=== PATIENT | male | born 1950 | race American Indian/Alaskan Native ===

== ENCOUNTER 2021-05-23 11:14 | Emergency (ER) | payer OTHER ==
[~2021-05-23] VITALS: Ht 185.4 cm; Wt 145.1 kg
[2021-05-23] MEDS ORDERED: HYDROCODONE-HO1 EAC1 (11:29)
[2021-05-23] MEDS ORDERED: GRALISE600 MG (11:29)
[2021-05-23] MEDS ORDERED: DIABETES (11:30)
== END 2021-05-23 13:31 | disposition home or self-care (01) ==
LOC: ER 11:14
DX: S33.5XXA Sprain of ligaments of lumbar spine, initial encounter (principal); R07.89 Other chest pain; M54.6 Pain in thoracic spine; V49.88XA Car occupant (driver) (passenger) injured in other specified transport accidents, initial encounter; Y93.89 Activity, other specified; Y92.89 Other specified places as the place of occurrence of the external cause; Y99.8 Other external cause status; Z03.818 Encounter for observation for suspected exposure to other biological agents ruled out

== ENCOUNTER 2025-03-04 17:36 | Emergency (ER) | payer OTHER ==
[~2025-03-04] VITALS: Ht 185.4 cm; Wt 140.6 kg
[~2025-03-04 17:36] MED LIST: ADULT LOW DOSE81 M1 PO; DIABETES; GABAPENTIN800 M1 PO; GRALISE600 MG; HYDROCODONE-HO1 EAC1; NORVASC5 MG PO; TAMS0.4C PO; VALSARTAN160 MG PO
[2025-03-04] MEDS ORDERED: FLONASE16 GM NS (19:25)
[2025-03-04] MEDS ORDERED: DULOXETINE HCL60 MG PO (19:25)
[2025-03-04] MEDS ORDERED: TRELEGY ELLIPT1 EAC1 IH (19:25)
[2025-03-04] MEDS ORDERED: ROFLUMILAST TP (19:26)
[2025-03-04] MEDS ORDERED: OZEMPIC2 MG/0.75 (19:27)
[2025-03-04] MEDS ORDERED: FUROSEMIDE40 MG PO (19:27)
[2025-03-04] MEDS ORDERED: ASPIRIN81 MG (19:28)
[2025-03-04] MEDS ORDERED: FEBUXOSTAT80 MG PO (19:28)
[2025-03-04] MEDS ORDERED: NORFLEX100MG PO (21:06)
[2025-03-04] MEDS ORDERED: DICLOFENAC SODI75 MG PO (21:06)
[2025-03-04] MEDS ORDERED: ORPHENADRINE CITRATE 30 MG/ML AMPUL ONE (21:20)
[2025-03-04] MEDS ORDERED: KETOROLAC TROMETHAMINE 60 MG VIAL IM ONE ×2 (21:21→21:30)
[2025-03-04] MEDS ORDERED: ORPHENADRINE CITRATE 30 MG/ML AMPUL IM ONE (21:30)
== END 2025-03-04 22:23 | disposition home or self-care (01) ==
LOC: ER 17:36
DX: M25.511 Pain in right shoulder (principal); M62.838 Other muscle spasm; I10 Essential (primary) hypertension; E11.9 Type 2 diabetes mellitus without complications; Z91.013 Allergy to seafood
CPT/HCPCS: 96372; 99282; J1885; J2360